=== PATIENT | female | born 1985 | race Caucasian/White ===

== ENCOUNTER 2020-10-01 10:18 | Inpatient (IN) | payer MEDICAID ==
[2020-10-01] MEDS ORDERED: Oxytocin 10 Units/1 ML SDV ONE (11:23)
[2020-10-01] MEDS ORDERED: Sodium Chloride 0.9% 10 ML Syringe FLUSH PRN (11:38)
[2020-10-01] MEDS ORDERED: Benzocaine/Menthol 20%-0.5% Spray 78 GM Cannister TOP PRN (11:38)
[2020-10-01] MEDS ORDERED: Sodium Chloride 0.9% 10 ML SDV IV PRN (11:38)
[2020-10-01] MEDS ORDERED: Sodium Chloride 0.9% 2.5 ML Syringe FLUSH PRN (11:38)
[2020-10-01] MEDS ORDERED: oxyCODONE 5 MG Tab PO PRN (11:38)
[2020-10-01] MEDS ORDERED: Bisacodyl 10 MG Supp RECTAL PRN (11:38)
[2020-10-01] MEDS ORDERED: Witch Hazel Medicated Pads 40/Jar TOP PRN (11:38)
[2020-10-01] MEDS ORDERED: Lanolin 100% Cream 7 GM Tube TOP PRN (11:38)
[2020-10-01] MEDS ORDERED: Docusate Sodium 100 MG Cap PO PRN (11:38)
--- NOTE | 2020-10-01 11:45 | PCM.DEL ---
L & D Note - General Info Date of Service: 10/01/20 Mother's Due Date: 09/29/20 - Delivery Note Labor: Spontaneous Delivery Outcome: Livebirth Infant Delivery Method: Spontaneous Vaginal Delivery-Single Presentation: Vertex Nuchal Cord: None Anesthesia Type: None Amniotic Fluid Description: Clear Episiotomy Type: None Laceration: 1st Degree Placenta: Intact, Spontaneous Cord: 3 Vessels Estimated Blood Loss: 400 Resuscitation Needed: No Slater: Stimulated, Warmed, Wilder Used Score 1 min: 8 Score 5 min: 9 Delivery Comments (Free Text/Narrative):: Live female infant, weight pending No HSV lesions or prodromal symptoms, on prophylaxis GBS negative - General Info Date of Service: 10/01/20 - Patient Data Med Orders - Current: Current Medications Acetaminophen (Acetaminophen 500 Mg Tab) 1,000 mg PO Q6H PRN PRN Reason: Pain Benzocaine/Menthol (Benzocaine/Menthol 20%-0.5% [place] 78 Gm Cannister) 78 gm TOP ASDIRECTED PRN PRN Reason: Perineal Comfort Measure Bisacodyl (Bisacodyl 10 Mg Supp) 10 mg RECTAL ONETIME PRN PRN Reason: Constipation Docusate Sodium (Docusate Sodium 100 Mg Cap) 100 mg PO BID PRN PRN Reason: Constipation Emollient Ointment (Lanolin 100% Cream 7 Gm Tube) 0 gm TOP ASDIRECTED PRN PRN Reason: Sore Nipples Ibuprofen (Ibuprofen 800 Mg Tab) 800 mg PO Q8H PRN PRN Reason: Pain Oxycodone HCl (Oxycodone 5 Mg Tab) 5 mg PO Q2H PRN PRN Reason: Pain Sodium Chloride (Sodium Chloride 0.9% 10 Ml Syringe) 10 ml FLUSH ASDIRECTED PRN PRN Reason: Keep Vein Open Sodium Chloride (Sodium Chloride 0.9% 2.5 Ml Syringe) 2.5 ml FLUSH ASDIRECTED PRN PRN Reason: Keep Vein Open Sodium Chloride (Sodium Chloride 0.9% 10 Ml Sdv) 10 ml IV ASDIRECTED PRN PRN Reason: IV Use Witch Stephanie (Witch Stephanie Medicated Pads 40/Jar) 1 pad TOP ASDIRECTED PRN PRN Reason: comfort care Discontinued Medications Oxytocin (Oxytocin 10 Units/1 Ml Sdv) Confirm Administered Dose 10 unit .ROUTE .STK-MED ONE Stop: 10/01/20 11:24 - Problem List & Annotations (1) Vaginal delivery SNOMED Code(s): 428934758 Code(s): O80 - ENCOUNTER FOR FULL-TERM UNCOMPLICATED DELIVERY Status: Acute Current Visit: Yes - Problem List Review Problem List Initiated/Reviewed/Updated: Yes - My Orders Last 24 Hours: My Active Orders 10/01/20 Lunch Regular Diet [DIET] 10/01/20 11:38 Patient Status [ADT] Routine May Shower [RC] ASDIRECTED Notify Provider Vital Signs [RC] ASDIRECTED Up ad Anette [RC] ASDIRECTED Vital Signs [RC] PER UNIT ROUTINE CBC W/O DIFF,HEMOGRAM [HEME] Stat Acetaminophen [Tylenol Extra Strength] 1,000 mg PO Q6H PRN Benzocaine/Menthol [Dermoplast Pain Relief 20%-0.5% [place]] 78 gm TOP ASDIRECTED PRN Docusate Sodium [Colace] 100 mg PO BID PRN Ibuprofen [Motrin] 800 mg PO Q8H PRN Lanolin [Lansinoh HPA] See Dose Instructions TOP ASDIRECTED PRN Sodium Chloride 0.9% [Normal Saline] 10 ml IV ASDIRECTED PRN Sodium Chloride 0.9% [Saline Flush] 10 ml FLUSH ASDIRECTED PRN Sodium Chloride 0.9% [Saline Flush] 2.5 ml FLUSH ASDIRECTED PRN bisacodyL [Dulcolax] 10 mg RECTAL ONETIME PRN oxyCODONE 5 mg PO Q2H PRN witch Stephanie [Tucks] 1 pad TOP ASDIRECTED PRN Assess Lochia [WOMSER] Per Unit Routine Assess Uterine Involution [WOMSER] Per Unit Routine Breast Pump [WOMSER] Per Unit Routine Ice Therapy [OM.PC] Per Unit Routine Perineal Care [OM.PC] Per Unit Routine Peripheral IV Discontinue [OM.PC] Routine Peripheral IV Insertion Adult [OM.PC] Urgent Sitz Bath [OM.PC] Per Unit Routine Resuscitation Status Routine 10/01/20 11:39 Cooling Warming Measures [RC] ASDIRECTED 10/01/20 11:40 CORONAVIRUS COVID-19 FRANCISCO [MOLEC] Routine RPR (SYPHILIS SERO) W/ RFLX [REF] Routine TYPE AND SCREEN [BBK] Routine 10/02/20 05:11 HEMOGLOBIN/HEMATOCRIT,HH [HEME] Timed - Assessment Assessment:: 35yo s/p at 40w2d - Plan Plan:: Admit to unit for routine care.
[2020-10-01] MEDS ORDERED: Oxytocin/Lactated Ringers 30 UNIT/500 ML BAG IV SCH (12:00)
[2020-10-01] MEDS ORDERED: Oxytocin/0.9 % Sodium Chloride 30 UNIT/500 ML BAG ONE (12:23)
[2020-10-01] MEDS: Ibuprofen 800 MG Tab PO PRN (15:13)
--- NOTE | 2020-10-01 19:47 | OR ---
SURGEON: Diana aVng MD DATE OF PROCEDURE: 10/01/2020 PREOPERATIVE DIAGNOSES: 1. A 35-year-old G2, P1-0-0-1 at 40 weeks and 2 days' gestation. 2. Group B strep negative. 3. Herpes simplex virus, on prophylaxis and without lesions or prodromal symptoms. POSTOPERATIVE DIAGNOSES: 1. A 35-year-old G2, P2-0-0-2 at 40 weeks and 2 days' gestation. 2. Group B strep negative. 3. Herpes simplex virus, on prophylaxis and without lesions or prodromal symptoms. PROCEDURE: Spontaneous vaginal delivery. PRIMARY SURGEON: Diana Vang MD. ANESTHESIA: None. ESTIMATED BLOOD LOSS: 400 mL. FINDINGS: Live female in cephalic presentation. score of 8 and 9 at one and five minutes respectively. Weight pending. Placenta intact with 3-vessel cord. First-degree perineal laceration noted. INDICATION: This is a 35-year-old G2, P1-0-0-1 who presented with 40 weeks and 2 days' gestation, complaining of contractions. The patient was not checked upon presentation. However, 1 hour later called out to the nursing station stating that she felt the need to push. The nurse checked the patient's cervix and she was found to be completely dilated and spontaneous rupture of membranes had occurred with clear fluid noted. I was called to the room. DESCRIPTION OF PROCEDURE: I arrived to the room with head at +3 station. Over the next several contractions, the patient pushed and delivered a live female . The head was delivered followed quickly by the shoulders and remainder of body. The infant was placed on maternal abdomen. After approximately 60 seconds, cord was clamped and cut. The placenta then delivered intact with 3-vessel cord via the Cameron-La maneuver. The perineum was inspected and first-degree perineal laceration was noted. This was hemostatic without repair. 10 units of IM Pitocin were given. The patient had not had an IV in place yet. Her lochia was moderate. Her fundus was firm. An IV will be placed and she will be started on additional Pitocin to help with uterine tone. [id number] / MODL /[id number] HAYLIE
[2020-10-01] MEDS: Acetaminophen 500 MG Tab PO PRN (21:17)
[2020-10-02] MEDS: Ibuprofen 800 MG Tab PO PRN ×2 (01:56→09:46)
[2020-10-02] MEDS: Acetaminophen 500 MG Tab PO PRN (06:07)
--- NOTE | 2020-10-02 08:13 | PCM.PNPP ---
- General Info Date of Service: 10/02/20 Subjective Update: Patient doing well. Minimal-moderate lochia. Cramping controlled with Ibuprofen. Baby nursing well. Functional Status: Reports: Pain Controlled, Tolerating Diet, Ambulating, Urinating - Review of Systems General: Reports: No Symptoms HEENT: Reports: No Symptoms Pulmonary: Reports: No Symptoms Cardiovascular: Reports: No Symptoms Gastrointestinal: Reports: No Symptoms Genitourinary: Reports: No Symptoms Musculoskeletal: Reports: No Symptoms Skin: Reports: No Symptoms Neurological: Reports: No Symptoms Psychiatric: Reports: No Symptoms - Patient Data Vital Signs - Most Recent: Last Vital Signs Temp 36.1 C 10/02/20 08:00 Pulse 62 10/02/20 08:00 Resp 18 10/02/20 06:20 BP 106/67 10/02/20 06:20 Pulse Ox 96 10/02/20 06:20 Weight - Most Recent: 79.832 kg I&O - Last 24 Hours: Intake & Output 10/01/20 10/02/20 10/02/20 22:59 06:59 14:59 Intake Total 2 Balance 2 Lab Results - Last 24 Hours: Laboratory Results - last 24 hr 10/01/20 10/01/20 10/01/20 Range/Units 12:14 12:14 12:22 WBC 14.70 H (4.0-11.0) K/uL RBC 4.37 (4.30-5.90) M/uL Hgb 14.3 (12.0-16.0) g/dL Hct 42.0 (36.0-46.0) % MCV 96.1 (80.0-98.0) fL MCH 32.7 H (27.0-32.0) pg MCHC 34.0 (31.0-37.0) g/dL RDW Std Deviation 52.4 (28.0-62.0) fl RDW Coeff of Miky 15 (11.0-15.0) % Plt Count 177 (150-400) K/uL MPV 11.10 (7.40-12.00) fL Nucleated RBC % 0.0 /100WBC Nucleated RBCs # 0 K/uL SARS-CoV-2 RNA (FRANCISCO) NEGATIVE (NEGATIVE) Blood Type B NEGATIVE Antibody Screen POSITIVE Antibody Identification Anti-D Screen (NEGATIVE) RhIG Candidate? Rhogam Indicated 10/01/20 10/02/20 Range/Units 13:45 05:16 WBC (4.0-11.0) K/uL RBC (4.30-5.90) M/uL Hgb 12.4 (12.0-16.0) g/dL Hct 36.6 (36.0-46.0) % MCV (80.0-98.0) fL MCH (27.0-32.0) pg MCHC (31.0-37.0) g/dL RDW Std Deviation (28.0-62.0) fl RDW Coeff of Miky (11.0-15.0) % Plt Count (150-400) K/uL MPV (7.40-12.00) fL Nucleated RBC % /100WBC Nucleated RBCs # K/uL SARS-CoV-2 RNA (FRANCISCO) (NEGATIVE) Blood Type Antibody Screen Antibody Identification Screen NEGATIVE (NEGATIVE) RhIG Candidate? YES Rhogam Indicated YES, BABY RH POS H Med Orders - Current: Current Medications Acetaminophen (Acetaminophen 500 Mg Tab) 1,000 mg PO Q6H PRN PRN Reason: Pain Last Admin: 10/02/20 06:07 Dose: 1,000 mg Documented by: Benzocaine/Menthol (Benzocaine/Menthol 20%-0.5% [place] 78 Gm Cannister) 78 gm TOP ASDIRECTED PRN PRN Reason: Perineal Comfort Measure Last Admin: 10/01/20 15:07 Dose: 1 canister Documented by: Bisacodyl (Bisacodyl 10 Mg Supp) 10 mg RECTAL ONETIME PRN PRN Reason: Constipation Docusate Sodium (Docusate Sodium 100 Mg Cap) 100 mg PO BID PRN PRN Reason: Constipation Emollient Ointment (Lanolin 100% Cream 7 Gm Tube) 0 gm TOP ASDIRECTED PRN PRN Reason: Sore Nipples Last Admin: 10/01/20 15:12 Dose: 7 g Documented by: Oxytocin/Lactated Ringer's (Pitocin In Lr 30 Units/500 Ml) 30 unit in 500 mls @ 999 mls/hr IV TITRATE CHERRIE; Protocol Ibuprofen (Ibuprofen 800 Mg Tab) 800 mg PO Q8H PRN PRN Reason: Pain Last Admin: 10/02/20 01:56 Dose: 800 mg Documented by: Oxycodone HCl (Oxycodone 5 Mg Tab) 5 mg PO Q2H PRN PRN Reason: Pain Sodium Chloride (Sodium Chloride 0.9% 10 Ml Syringe) 10 ml FLUSH ASDIRECTED PRN PRN Reason: Keep Vein Open Sodium Chloride (Sodium Chloride 0.9% 2.5 Ml Syringe) 2.5 ml FLUSH ASDIRECTED PRN PRN Reason: Keep Vein Open Sodium Chloride (Sodium Chloride 0.9% 10 Ml Sdv) 10 ml IV ASDIRECTED PRN PRN Reason: IV Use Witch Nargis (Witch [place]arg[place] Medicated Pads 40/Jar) 1 pad TOP ASDIRECTED PRN PRN Reason: comfort care Last Admin: 10/01/20 15:07 Dose: 1 tub Documented by: Discontinued Medications Oxytocin/Sodium Chloride (Oxytocin 30 Unit/500 Ml-Ns) Confirm Administered Dose 30 unit in 500 mls @ as directed .ROUTE .STK-MED ONE Stop: 10/01/20 12:24 Last Admin: 10/01/20 12:31 Dose: 999 mls/hr Documented by: Oxytocin (Oxytocin 10 Units/1 Ml Sdv) Confirm Administered Dose 10 unit .ROUTE .STK-MED ONE Stop: 10/01/20 11:24 Last Admin: 10/01/20 11:26 Dose: 10 unit Documented by: - Infant Interaction Infant Disposition, : in Room with Family Infant Feeding: Breastfed ; Nursed Well Support Person: Significant Other - Recovery Exam Fundal Tone: Firm Fundal Level: 1 Fingerbreadths Below Umbilicus Fundal Placement: Midline Lochia Amount: Small Bladder Status: Voiding Urinary Elimination: Voided - Exam General: Alert, Oriented Neck: Supple Lungs: Normal Respiratory Effort GI/Abdominal Exam: Soft, Non-Tender, No Distention Extremities: No Pedal Edema Skin: Warm, Dry, Intact Neurological: No New Focal Deficit Psy/Mental Status: Alert, Normal Affect, Normal Mood - Problem List & Annotations (1) Vaginal delivery SNOMED Code(s): 744028865 Code(s): O80 - ENCOUNTER FOR FULL-TERM UNCOMPLICATED DELIVERY Status: Acute Current Visit: Yes - Problem List Review Problem List Initiated/Reviewed/Updated: Yes - My Orders Last 24 Hours: My Active Orders 10/01/20 Lunch Regular Diet [DIET] 10/01/20 11:38 Patient Status [ADT] Routine May Shower [RC] ASDIRECTED Notify Provider Vital Signs [RC] ASDIRECTED Up ad Anette [RC] ASDIRECTED Vital Signs [RC] PER UNIT ROUTINE Acetaminophen [Tylenol Extra Strength] 1,000 mg PO Q6H PRN Benzocaine/Menthol [Dermoplast Pain Relief 20%-0.5% [place]] 78 gm TOP A SDIRECTED PRN Docusate Sodium [Colace] 100 mg PO BID PRN Ibuprofen [Motrin] 800 mg PO Q8H PRN Lanolin [Lansinoh HPA] See Dose Instructions TOP ASDIRECTED PRN Sodium Chloride 0.9% [Normal Saline] 10 ml IV ASDIRECTED PRN Sodium Chloride 0.9% [Saline Flush] 10 ml FLUSH ASDIRECTED PRN Sodium Chloride 0.9% [Saline Flush] 2.5 ml FLUSH ASDIRECTED PRN bisacodyL [Dulcolax] 10 mg RECTAL ONETIME PRN oxyCODONE 5 mg PO Q2H PRN witch Nargis [Tucks] 1 pad TOP ASDIRECTED PRN Assess Lochia [WOMSER] Per Unit Routine Assess Uterine Involution [WOMSER] Per Unit Routine Breast Pump [WOMSER] Per Unit Routine Ice Therapy [OM.PC] Per Unit Routine Perineal Care [OM.PC] Per Unit Routine Peripheral IV Discontinue [OM.PC] Routine Peripheral IV Insertion Adult [OM.PC] Urgent Sitz Bath [OM.PC] Per Unit Routine Resuscitation Status Routine 10/01/20 11:39 Cooling Warming Measures [RC] ASDIRECTED 10/01/20 12:00 Oxytocin/Lactated Ringers [Pitocin in LR 30 Units/500 ML] 30 unit in 500 ml IV TITRATE 10/01/20 12:14 RPR (SYPHILIS SERO) W/ RFLX [REF] Routine - Assessment Assessment:: 35yo s/p at 40w2d, PPD#1 - Plan Plan:: Patient meeting all milestones. Received Rhogam. Desires discharge home today if baby cleared, reviewed precautions/instructions. All questions answered.
== END 2020-10-02 15:00 | disposition home or self-care (01) | DRG 807 ==
LOC: MW.OBCHECK 10:18 → MW.OB 10:22 → MW.OBCHECK 11:20 → MW.OB 11:21
PROVIDERS: ADMIT Obstetrics & Gynecology; ATTEND Obstetrics & Gynecology
PROC: 10E0XZZ Delivery of Products of Conception, External Approach (ICD-10-PCS; principal; 2020-10-01)
PROC: 0HQ9XZZ Repair Perineum Skin, External Approach (ICD-10-PCS; 2020-10-01)
DX: O48.0 Post-term pregnancy (principal); Z37.0 Single live birth; Z3A.40 40 weeks gestation of pregnancy; O70.0 First degree perineal laceration during delivery
CPT/HCPCS: 36415; 36430; 59025; 59409; 85014; 85018; 85027; 85460; 86592; 86850; 86870; 86900; 86901; A9270-GY; J2590; J2792; U0002